=== PATIENT | female | born 1990 | race Caucasian/White ===

== ENCOUNTER 2017-01-17 20:24 | Emergency (ER) | payer OTHER ==
[2017-01-17 20:57] VITALS: BP 122/79; PULSE 68; RESP 18; TEMP 97.5; O2SAT 99
--- NOTE | 2017-01-17 22:05 | EDPHY ---
H & P Stated Complaint: "HEAD FOGGY" Time Seen by Provider: 01/17/17 20:31 HPI/ROS: HPI CHIEF COMPLAINT: "Foggy Headed after Nyquil" HISTORY OF PRESENT ILLNESS: This patient is a very pleasant 26 year old female she is otherwise healthy she has been sick with an upper respiratory tract infection recently and she took NyQuil this evening around 630PM she woke up 20 minutes later feeling panicky. She felt that her whole body was heavy. She has not had any chest pain or shortness of breath. She states she started panic called 911. EMS arrived and evaluated took her blood sugar and states that it was 300 was brought here to the emergency room. She has no history of diabetes. Blood sugar was recheck upon arrival here and is normal. She has been back in ER room 24 resting and during her time from arriving to my arrival evaluating her she states that she feels better. At this time she has no complaints. She denies chest pain, dizziness. She states her anxiety is much improved and her whole body does not feel heavy. Past Medical History: No significant medical history Past Surgical History: No significant surgical history Social History: Denies daily use of drugs alcohol tobacco. Family History: Noncontributory ROS REVIEW OF SYSTEMS: A comprehensive 10 point review of systems is otherwise negative aside from elements mentioned in the history of present illness. Exam Constitutional appears well nontoxic, triage nursing summary reviewed, vital signs reviewed, awake/alert. Eyes normal conjunctivae and sclera, EOMI, PERRLA. HENT normal inspection, atraumatic, moist mucus membranes, no epistaxis, neck supple/ no meningismus, no raccoon eyes. Respiratory clear to auscultation bilaterally, normal breath sounds, no respiratory distress, no wheezing. Cardiovascular rate normal, regular rhythm, no murmur, no edema, distal pulses normal. Gastrointestinal soft, non-tender, no rebound, no guarding, normal bowel sounds, no distension, no pulsatile mass. Genitourinary no CVA tenderness. Musculoskeletal no midline vertebral tenderness, full range of motion, no calf swelling, no tenderness of extremities, no meningismus, good pulses, neurovascularly intact. Skin pink, warm, & dry, no rash, skin atraumatic. Neurologic awake, alert and oriented x 3, AAOx3, moves all 4 extremities equally, motor intact, sensory intact, CN II-XII intact, normal cerebellar, normal vision, normal speech. Psychiatric normal mood/affect. Heme/Lymph/Immune no lymphadenopathy. Differential Diagnosis: Includes but is not limited to in a particular order dehydration, electrolyte disturbance, medication adverse effect, acute anxiety, panic attack Medical Decision Making: Plan for this patient obtain EKG, IV fluid bolus 1 L normal saline, check basic blood work including electrolytes and re-evaluate. Re-evaluation: EKG interpretation by me on record in [employer] system. Impression time of EKG 2228 this is sinus rhythm rate of 72 no acute ischemic changes appreciated. And no signs of cardiac arrhythmia. Unremarkable EKG. 2315: Re-evaluation at this time this patient is resting comfortably no acute distress. She is requesting discharge. She feels well. Blood work has been reviewed she does have a leukocytosis without a significant left shift this most likely viral versus reactive. She appears well nontoxic no fever here vital signs are stable. She has no complaints. I did give patient strict return precautions patient understands return emergency room if there is any worsening symptoms questions or concerns. Source: Patient - Personal History LMP (Females 10-55): Unknown Current Tetanus Diphtheria and Acellular Pertussis (TDAP): Yes Tetanus Vaccine Date: LESS THAN 10 YEARS - Medical/Surgical History Hx Asthma: No Hx Chronic Respiratory Disease: No Hx Diabetes: No Hx Cardiac Disease: No Hx Renal Disease: No Hx Cirrhosis: No Hx Alcoholism: No Hx HIV/AIDS: No Hx Splenectomy or Spleen Trauma: No Other PMH: NONE - Social History Smoking Status: Never smoked Constitutional: Initial Vital Signs Temperature (C) 36.4 C 01/17/17 20:25 Heart Rate 68 01/17/17 20:25 Respiratory Rate 18 01/17/17 20:25 Blood Pressure 122/79 H 01/17/17 20:25 O2 Sat (%) 99 01/17/17 20:25 O2 Delivery Mode Room Air Allergies/Adverse Reactions: No Known Allergies Allergy (Unverified 01/17/17 20:36) Home Medications: Medication Instructions Recorded NK [No Known Home Meds] 01/17/17 Medical Decision Making - Data Points Laboratory Results: Laboratory Results 01/17/17 20:25 01/17/17 20:25 01/17/17 01/17/17 01/17/17 22:42 22:13 20:25 WBC RBC Hgb Hct MCV MCH MCHC RDW Plt Count MPV Neut % (Auto) Lymph % (Auto) [place] % (Auto) Eos % (Auto) Baso % (Auto) Nucleat RBC Rel Count Absolute Neuts (auto) Absolute Lymphs (auto) Absolute Monos (auto) Absolute Eos (auto) Absolute Basos (auto) Absolute Nucleated RBC Immature Gran % Immature Gran # Sodium 140 mEq/L mEq/L (134-144) Potassium 3.7 mEq/L mEq/L (3.5-5.2) Chloride 99 mEq/L mEq/L (97-110) Carbon Dioxide 25 mEq/l mEq/l (22-31) Anion Gap 16 mEq/L mEq/L (8-16) BUN 12 mg/dL mg/dL (7-23) Creatinine 0.7 mg/dL mg/dL (0.6-1.0) Estimated GFR > 60 Glucose 101 mg/dL H mg/dL (70-100) Calcium 9.6 mg/dL mg/dL (8.5-10.4) Beta HCG, Qual NEGATIVE Urine Color Pending Urine Appearance Pending Urine pH Pending Ur Specific [place] Pending Urine Protein Pending Urine Ketones Pending Urine Blood Pending Urine Nitrate Pending Urine Bilirubin Pending Urine Urobilinogen Pending Ur Leukocyte Esterase Pending Urine Glucose Pending 01/17/17 20:25 WBC 18.32 10^3/uL H 10^3/uL (3.80-9.50) RBC 4.75 10^6/uL 10^6/uL (4.18-5.33) Hgb 15.0 g/dL g/dL (12.6-16.3) Hct 43.1 % % (38.0-47.0) MCV 90.7 fL fL (81.5-99.8) MCH 31.6 pg pg (27.9-34.1) MCHC 34.8 g/dL g/dL (32.4-36.7) RDW 12.3 % % (11.5-15.2) Plt Count 350 10^3/uL 10^3/uL (150-400) MPV 10.2 fL fL (8.7-11.7) Neut % (Auto) 58.8 % % (39.3-74.2) Lymph % (Auto) 29.5 % % (15.0-45.0) [place] % (Auto) 7.2 % % (4.5-13.0) Eos % (Auto) 3.0 % % (0.6-7.6) Baso % (Auto) 0.9 % % (0.3-1.7) Nucleat RBC Rel Count 0.0 % % (0.0-0.2) Absolute Neuts (auto) 10.76 10^3/uL H 10^3/uL (1.70-6.50) Absolute Lymphs (auto) 5.41 10^3/uL H 10^3/uL (1.00-3.00) Absolute Monos (auto) 1.32 10^3/uL H 10^3/uL (0.30-0.80) Absolute Eos (auto) 0.55 10^3/uL H 10^3/uL (0.03-0.40) Absolute Basos (auto) 0.17 10^3/uL H 10^3/uL (0.02-0.10) Absolute Nucleated RBC 0.00 10^3/uL 10^3/uL (0-0.01) Immature Gran % 0.6 % % (0.0-1.1) Immature Gran # 0.11 10^3/uL H 10^3/uL (0.00-0.10) Sodium Potassium Chloride Carbon Dioxide Anion Gap BUN Creatinine Estimated GFR Glucose Calcium Beta HCG, Qual Urine Color Urine Appearance Urine pH Ur Specific [place] Urine Protein Urine Ketones Urine Blood Urine Nitrate Urine Bilirubin Urine Urobilinogen Ur Leukocyte Esterase Urine Glucose Medications Given: Discontinued Medications Sodium Chloride (Ns) 1,000 mls @ 0 mls/hr IV EDNOW ONE; Wide Open PRN Reason: Protocol Stop: 01/17/17 22:13 Last Admin: 01/17/17 22:28 Dose: 1,000 mls Departure - Departure Disposition: Home, Routine, Self-Care Clinical Impression: Lightheadedness Medication adverse effect Qualifiers: Encounter type: initial encounter Qualified Code(s): T88.7XXA - Unspecified adverse effect of drug or medicament, initial encounter Condition: Good Instructions: Lightheadedness (ED) Additional Instructions: 1. Return to the emergency room if you have worsening symptoms includes passing out, chest pain, nausea or vomiting or not feeling well. 2. Stay well-hydrated drink lots of fluids. 3. Over the next 24-48 hours no spicy fatty greasy foods. Referrals: [facility] [Other] - As per Instructions
[2017-01-17] MEDS ORDERED: NS 1,000 ML IV ONE (22:12)
[2017-01-17 22:18] LABS: % IMMATURE GRANULYOCYTES 0.6 % (0.0-1.1); ABSOLUTE IMMATURE GRANULOCYTES 0.11 10^3/uL (0.00-0.10); ADD DIFF? NO; ADD MORPH? NO; ADD SCAN? NO; ATYPICAL LYMPHOCYTE FLAG 40 (0-99); FRAGMENT RBC FLAG 0 (0-99); HEMATOCRIT 43.1 % (38.0-47.0); LEFT SHIFT FLG 0 (0-99); LIPEMIA HEMOLYSIS FLAG 90 (0-99); MEAN CELL HEMOGLOBIN 31.6 pg (27.9-34.1); MEAN CELL HEMOGLOBIN CONCENTR. 34.8 g/dL (32.4-36.7); MEAN CELL VOLUME 90.7 fL (81.5-99.8); MEAN PLATELET VOLUME 10.2 fL (8.7-11.7); PLATELET CLUMPS FLAG 0 (0-99); PLATELET COUNT 350 10^3/uL (150-400); RED BLOOD CELL COUNT 4.75 10^6/uL (4.18-5.33); RED CELL DISTRIBUTION WIDTH 12.3 % (11.5-15.2)
[2017-01-17 22:24] LABS: ANION GAP 16 mEq/L (8-16); CALCIUM 9.6 mg/dL (8.5-10.4); CARBON DIOXIDE 25 mEq/l (22-31); CHLORIDE 99 mEq/L (97-110); CREATININE 0.7 mg/dL (0.6-1.0); GLOMERULAR FILTRATION RATE > 60; GLUCOSE 101 mg/dL (70-100); POTASSIUM 3.7 mEq/L (3.5-5.2); SODIUM 140 mEq/L (134-144)
--- NOTE | 2017-01-17 22:31 | CPEKG ---
Heart Rate: 72 RR Interval: 833 P-R Interval: 164 QRSD Interval: 76 QT Interval: 404 QTC Interval: 443 P [place]: 71 QRS [place]: 97 T Wave [place]: 56 EKG Severity - OTHERWISE NORMAL ECG - EKG Impression: SINUS RHYTHM EKG Impression: BORDERLINE RIGHT AXIS DEVIATION Electronically Signed By: Randa Dobson 18-Jan-2017 00:02:46
[2017-01-17 22:57] LABS: COLOR YELLOW; LEUKOCYTE ESTERASE,URINE NEGATIVE (NEGATIVE); NITRITE,URINE NEGATIVE (NEGATIVE)
== END 2017-01-17 23:26 | disposition home or self-care (01) ==
LOC: EDUNIT#
DX: R42 Dizziness and giddiness (principal); T45.0X5A Adverse effect of antiallergic and antiemetic drugs, initial encounter; E86.9 Volume depletion, unspecified

== ENCOUNTER → 2017-03-16 | Outpatient (CLI) | payer OTHER ==
[~2017-03-16] MED LIST: DEPO METHYLPREDNISOLONE 40 MG/ML SDV ONE; GADOBUTROL 7.5 ML VIAL IVP ONE; IOPAMIDOL (ISOVUE 370) 100 ML BTL IV ONE; LIDOCAINE 1% 300 MG/30 ML SDV ONE; ROPIVACAINE HCL 150 MG/30 ML INJ ONE
== END ==
LOC: FIMAGING 10:18
PROVIDERS: ATTEND Family Medicine
PROC: 3E0U3KZ Introduction of Other Diagnostic Substance into Joints, Percutaneous Approach (ICD-10-PCS; principal; 2017-03-16)
DX: S73.191A Other sprain of right hip, initial encounter (principal); M25.551 Pain in right hip
CPT/HCPCS: A9585; J1030; J2795; Q9967

== ENCOUNTER 2017-07-24 05:45 | Day surgery (SDC) | payer OTHER ==
--- NOTE | 2017-07-19 22:24 | PDGENHP ---
History and Physical - Chief Complaint Bilateral hip pain - History of Present Illness 1. Bilateral~Femoroacetabular impingement (RICARDO) Cam type, with~resultant labral tear, RIGHT SIDE > LEFT HISTORY OF PRESENT ILLNESS: Doryis a 26 y.o.~~~active female~who I have had the pleasure to consult on today. I have enjoyed meeting her. She~lives in [place]. 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 ~She~is single; she~has no~children. ~Doryenjoys skiing, climbing, mountain biking. Mary Kay's right~hip pain started February 2016, with little~recalled trauma or injury, and with no~previous complaints. Went on a 8 mile ski skinning trip with heavy pack and noted new R hip pain at mile 4, but went away after a couple of weeks. Then in September 2016 fell while climbing and next day did dynamic leg lift with right and felt snap/pop in hip. Has had pain in right hip since. Dorydoes not have~a known history of hip dysplasia. Started with L hip pain 4 years ago, has done PT and diagnosed with hip impingement. L hip has been without pain for 2+ years. Presentation today is of anterior right~hip pain - deep. ~The hip does~wake her~ at night and does not~click and catch on her. Sitting can be uncomfortable~for her. Dorydoes~report suffering from lower back pain episodes. Doryhas~participated in physical therapy and has~tried other conservative measures including chiropractic adn~treatments. She~has not~received sufficient symptomatic improvement. Doryhas not~utilized medication for pain management. Mary Kay denies issues with the left~hip currently. Doryunderstands that she~has a hip and pelvis problem which should be researched and wishes to get a better understanding of her~hip status, followed by an establishment of a treatment strategy, hoping she~would be able to get back to her~well being active life. History: Past medical history: ~ Patient ~has a past medical history of Acne. She also has no past medical history of Basal cell carcinoma; Bleeding mole; Changing mole; Melanoma (HC code ); Squamous Cell Carcinoma; Transplant recipient; Unspecified infectious and parasitic diseases; or Wound healing, delayed. Relevant familial history: None which is relevant Past surgical history: None Doryhas never received general anesthesia. I have reviewed, verified and agree with the past medical, surgical, family and social history. Current Medications:~has a current medication list which includes the following prescription(s): ibuprofen and norgestimate-ethinyl estradiol. ALLERGIES:~is allergic to other. Objective: Physical Examination: Doryis 5~feet 2~inches tall and weighs 123~Lbs. Doryis AAO x3; she~is well- nourished, in NAD. Skin is warm and dry. ~Breathing is non-labored. ~CV with RRR by pulse. Abdomen is soft, NTND. Currently, she~walks with a normal~gait. Trendelenburg sign is negative~and proprioception is reduced, right~sides. She~presents with mild~signs of joint laxity. Beightons Score: 2 ~ Lower spine examination is negative~for sciatic or femoral nerve irritation with negative~SLR &~femoral stretch tests. Range of motion of the spine is normal~for flexion, extension, and rotations, with no~associated pain. Strength, Sensation and pulses are normal - bilaterally Ankles and knees exams are normal~and no~mal-alignment is evident. She~has left~0.5~cm short leg length discrepancy. Thigh circumference is symmetric~with no evidence for muscle atrophy~on both~ sides. Hip ROM (degrees): FL ER At 90~hip FL IR At 90~hip FL AB AD EX IR Neutral hip ER Neutral hip R 115 60 15 45 5 10 40 50 L 110 55 10 45 5 10 45 40 Specific hip and pelvis tests: Impingement Test STEPHANIE Roll Add. Longus R +++ Negative Negative Negative L + Negative Negative Negative Glut. Med ITB Posterior Imp R Negative 5/5 strength Negative 5/5 strength Negative L Negative 5/5 strength Negative 5/5 strength Negative Squeeze test measured normal Bony Symphysis pubis is painful~to touch while concentric activity of the rectus abdominis, does not~produce pain at its insertion. Ilio Psos specific tests are positive for pain during cycling for the right hip HF has minimal pain the right hip. Lateral and posterior~capsule tenderness on the right Greater trochanteric burse is painful~on both hips. Piriformis tests: FAIR is negative, with no~local signs of neuritis related to sciatic nerve. SIJs examination is normal~with normal~STEPHANIE in relation and local tenderness. Hamstrings tests are negative both hips. On a daily basis, the following percentages reflect Mary Kay's overall total pain: Deep hip: 100% Imaging: Radiology studies which I have personally reviewed, analyzed and measured are below: XR: AP of the hip and pelvis: Performed in a good~technique Coccyx to pubic symphysis distance 0.8~cm. 0~degrees caudal [place] Lines are preserved. No~Pathological signs are seen in the Symphysis Pubis. No~Pathological signs are seen at the Ischial tuberosity. ~ Specific measurements show: NSA~ LCE Sourcil~Angle Sharp's angle Lat. Cam Lat. Pincer C.Over~sign Head~Coverage % ATDmm R 136 33 3 39 N N N 93 + L 132 32 2 41 N N N 85 + Pos. wall sign ISS NAD ~~Dysplasia Comments R Negative Negative 13.5~mm Negative L Negative Negative 11.4~mm Negative Sclerosis Sup. Lat. OA Cysts Joint Space-WBZ Joint Space-Medial R Negative Negative Negative 3.6~mm 3.0~mm L Negative Negative Negative 3.6~mm 2.9~mm X Table lateral: Anterior cam lesion is seen~on both hips. Alpha Angle: ~ Right 68~dergrees Left 57~degrees MRI shows: 03/16/17 - shows anterior labral tear, no cysts, no subchondral edema, healthy cartilage throughout. Impression and plan: Doryis a 26 y.o.~active female~suffering from symptomatic Right~hip pain due to Right~Femoroacetabular impingement (RICARDO) Cam type~with labral tear~causing significant disability to her~and altering her~sport and life activities. Physical examination, imaging, and her~story correspond with the diagnosis mentioned above. I explained that femoroacetabular impingement (RICARDO) arises due to a bony or soft tissue conflict between the femur (ball) and acetabulum (socket) caused by an abnormality in the shape of the hip joint. Over time, repetitive impingement can result in damage to the labrum and adjacent surface cartilage within the socket, ultimately giving rise to progressive osteoarthritis of the hip. I explained that although a labral tear can be a source of pain, it is rarely the root of the problem and typically occurs secondary to an underlying abnormality in the shape and mechanics of the hip joint. ~ I reviewed conservative treatment options for RICARDO including activity modification to avoid positions of impingement, physical therapy, non-steroidal anti-inflammatory medications, and various injections (corticosteroid and PRP) aimed at reducing inflammation in the hip joint or/and preventing dynamic impingement. PRP injections may promote healing and reduce symptoms in certain cases but it will not repair chronically damaged tissue. Although these measures may help to buy time and reduce current level of symptoms, they are not a definitive solution to the problem given the underlying abnormality in the shape of the hip joint. Patients who have failed conservative management and continue to experience symptoms are candidates for hip arthroscopy, a minimally invasive surgery that can definitively address the underlying problem. Hip arthroscopy typically includes treating the labrum with either repair or reconstruction of the torn labrum; as well as addressing the underlying abnormalities by restoring the normal shape to the hip joint. ~If the cartilage is damaged a Microfracture surgical procedure may also be necessary to help stimulate the growth of fibrocartilage. ~If a patient requires a labral reconstruction or a Microfracture, the initial rehabilitation from the surgery may take longer, but the intermediate results are typically favorable. *Would be willing to do bilateral same-day hip arthroscopy given history of L hip pain/impingement and positive~impingement test on the left today. Mary Kay~will review the info presented. In order to obtain more detailed information regarding the alignment, orientation, and shape of the bony hip and pelvis I will order a CT scan to be performed. The results of the CT scan, including femoral torsion and acetabular version measured values and 3D images, will aid me in deciding on the best treatment strategy and surgical pre-planning. Mary Kay is going to think about her options and get back to us. Mary Kay~is happy with this plan. I have also supplied her~with handouts, outlining the expected surgical treatment and rehab involved. I wish~Mary Kay~all the best, ~~ Mable Olivares MD History Information - Allergies/Home Medication List Allergies/Adverse Reactions: nickel Allergy (Intermediate, Verified 06/27/17 16:17) Other-Enter Comments Home Medications: NK [No Known Home Meds] 01/17/17 [Last Taken Unknown] I have personally reviewed and updated: medical history - Social History Smoking Status: Never smoked Review of Systems Review of Systems: Physical Exam Physical Exam:
[2017-07-24] MEDS ORDERED: ACETAMINOPHEN 500 MG TAB PO ONE (06:04)
[2017-07-24] MEDS ORDERED: ceFAZolin 2 GM/SWFI 2 GM/20 ML SYR IVP ONE (06:04)
[2017-07-24] MEDS ORDERED: LIDOCAINE 1% 2 ML INJ ID PRN (06:04)
[2017-07-24] MEDS ORDERED: PREGABALIN 150 MG CAP PO ONE (06:04)
[2017-07-24] MEDS ORDERED: LR 1,000 ML IV ONE (06:04)
[2017-07-24] MEDS ORDERED: EPINEPHrine 30 MG/30 ML MDV (0.1 MG/0.1 ML) ONE (06:41)
[2017-07-24] MEDS ORDERED: BUPIVACAINE 0.25% 30 ML SDV ONE (06:41)
[2017-07-24] MEDS ORDERED: MIDAZOLAM 2 MG/2 ML VIAL IVP ONE (06:53)
[2017-07-24] MEDS ORDERED: SCOPOLAMINE HYDROBROMIDE 1 MG/3 DAYS PATCH TD ONE (06:55)
--- NOTE | 2017-07-24 06:55 | PDANEPAE ---
ANE History of Present Illness 26 yo for steve hip scope ANE Past Medical History - Cardiovascular History Hx Hypertension: No Hx Arrhythmias: No Hx Chest Pain: No Hx Coronary Artery / Peripheral Vascular Disease: No Hx CHF / Valvular Disease: No Hx Palpitations: No - Pulmonary History Hx COPD: No Hx Asthma/Reactive Airway Disease: No Hx Recent Upper Respiratory Infection: No Hx Oxygen in Use at Home: No Hx Sleep Apnea: No Sleep Apnea Screening Result - Last Documented: Negative - Neurologic History Hx Cerebrovascular Accident: No Hx Seizures: No Hx Dementia: No - Endocrine History Hx Diabetes: No - Renal History Hx Renal Disorders: No - Liver History Hx Hepatic Disorders: No - Neurological & Psychiatric Hx Hx Neurological and Psychiatric Disorders: Yes Neurological / Psychiatric History Comment: anxiety - Cancer History Hx Cancer: No - Congenital Disorder History Hx Congenital Disorders: Yes Congenital History Comment: hip issues - GI History Hx Gastrointestinal Disorders: No - Other Health History Other Health History: right hand ezcma - Chronic Pain History Chronic Pain: Yes (lower back, shoulder and neck tension) - Surgical History Prior Surgeries: wisdom tooth extraction ANE Review of Systems Review of Systems: - Exercise capacity METS (RN): 5 METS ANE Patient History - Allergies Allergies/Adverse Reactions: nickel Allergy (Intermediate, Verified 06/27/17 16:17) Other-Enter Comments - Home Medications Home medications: home medication list seen and reviewed Home Medications: NK [No Known Home Meds] 01/17/17 [Last Taken Unknown] - NPO status NPO Since - Liquids (Date): 07/23/17 NPO Since - Liquids (Time): 21:30 NPO Since - Solids (Date): 07/23/17 NPO Since - Solids (Time): 20:30 - Anes Hx Anes Hx: post operative nausea and vomiting - Smoking Hx Smoking Status: Never smoked - Family Anes Hx Family Hx Anesthesia Complications: mom with sensitive to anesthesia and narcotics ANE Labs/Vital Signs - Vital Signs Blood Pressure: 133/84 Heart Rate: 98 Respiratory Rate: 12 O2 Sat (%): 98 Height: 5 ft 1 in Weight: 54.431 kg ANE Physical Exam - Airway Mallampati Score: Class 2 Mouth exam: normal dental/mouth exam - Pulmonary Pulmonary: no respiratory distress - Cardiovascular Cardiovascular: regular rate and rhythym - ASA Status ASA Status: I ANE Anesthesia Plan Anesthesia Plan: general endotracheal anesthesia
[2017-07-24] MEDS ORDERED: SCOPOLAMINE HYDROBROMIDE 1 MG/3 DAYS PATCH TD SCH (07:00)
[2017-07-24] MEDS ORDERED: fentaNYL 100 MCG/2 ML INJ ONE ×3 (07:16→13:46)
[2017-07-24] MEDS ORDERED: REMIFENTANIL HCL 1 MG VIAL ONE ×3 (07:16→11:38)
[2017-07-24] MEDS ORDERED: PROPOFOL/EMULSION 500 MG/50 ML BOTTLE IV ONE ×3 (07:16→11:38)
[2017-07-24] MEDS ORDERED: PROMETHAZINE HCL 25 MG/ML INJ IVP PRN (13:13)
[2017-07-24] MEDS ORDERED: HYDROCODONE/APAP 5/325 TAB PO PRN (13:13)
[2017-07-24] MEDS ORDERED: NALOXONE HCL 0.4 MG/ML INJ IVP PRN (13:13)
[2017-07-24] MEDS ORDERED: ONDANSETRON 4 MG/2 ML VIAL IVP PRN (13:13)
[2017-07-24] MEDS ORDERED: HYDROmorphONE/DILAUDID 2 MG/ML INJ ONE (13:46)
[2017-07-24] MEDS: fentaNYL 100 MCG/2 ML INJ IVP PRN ×2 (13:48→13:59)
--- NOTE | 2017-07-24 13:49 | POSTANESTH ---
Post Anesthetic Evaluation Cardiovascular Status: Normal, Stable Respiratory Status: Normal, Stable Level of Consciousness/Mental Status: Can Participate in Eval Pain Control: Adequate, Prn Tx Ordered Nausea/Vomiting Control: Adequate, Prn Tx Ordered Complications Possibly Related to Anesthesia: None Noted
[2017-07-24] MEDS: HYDROmorphONE/DILAUDID 2 MG/ML INJ IVP PRN ×2 (13:51→14:07)
[2017-07-24 14:37] LABS: CREATINE KINASE 257 IU/L (0-156)
[2017-07-24] MEDS ORDERED: DIAZEPAM 5 MG/ML 1 ML SYR IVP ONE (14:45)
[2017-07-24] MEDS ORDERED: DIAZEPAM 5 MG/ML 1 ML SYR ONE (14:54)
[2017-07-24 17:28] VITALS: BP 124/84
[2017-07-24] MEDS ORDERED: ONDANSETRON 4 MG/2 ML VIAL ONE (17:39)
== END 2017-07-24 18:08 | disposition home or self-care (01) ==
LOC: FSGY 05:45
PROVIDERS: ATTEND Orthopaedic Surgery Sports Medicine
DX: M25.851 Other specified joint disorders, right hip (principal); M25.852 Other specified joint disorders, left hip; S73.191A Other sprain of right hip, initial encounter; S73.192A Other sprain of left hip, initial encounter
CPT/HCPCS: C1713; J0171; J0690; J1170; J2250; J2405; J2704; J3010; J3360